=== PATIENT | female | born 1950 | race Caucasian/White ===

== ENCOUNTER 2020-11-22 18:22 | Inpatient (IN) | payer MEDICARE ==
[~2020-11-22] VITALS: Ht 165.1 cm; Wt 95.5 kg
[~2020-11-22 18:22] MED LIST: AREDS PO; CALC-1125 PO; COMB5OS OD; FURO40TA5 PO; MAGN500C15 PO; MV-M1TAB20 PO; SPIR100T PO
[2020-11-22] MEDS ORDERED: ONDANSETRON 4MG INJ ONE ×2 (20:10→23:36)
[2020-11-22] MEDS ORDERED: FUROSEMIDE 40MG VIAL ONE (20:10)
[2020-11-22 20:21] LABS: INR 2.05 (0.85-1.15); PROTHROMBIN TIME 20.9 SEC (9.6-11.6)
[2020-11-22 20:22] LABS: PARTIAL THROMBOPLASTIN TIME 38.4 SEC (26.3-35.5)
[2020-11-22 20:58] LABS: APPEARANCE,URINE Cloudy (CLEAR); BILIRUBIN,URINE Large (NEGATIVE); COLOR,URINE Dark Yellow (YELLOW); GLUCOSE, URINE (UA) Negative (NEGATIVE); KETONES,URINE Negative (NEGATIVE); LEUKOCYTE ESTERASE ,URINE Small (NEGATIVE); NITRATE,URINE Positive (NEGATIVE); OCCULT BLOOD,URINE Negative (NEGATIVE); PROTEIN,URINE Negative (NEGATIVE)
[2020-11-22 21:04] LABS: BASOPHILS % (AUTO) 0.8 % (0.0-5.0); EOSINOPHILS % (AUTO) 0.1 % (0.0-8.0); HEMATOCRIT 47.2 % (36-48); LYMPHOCYTES % (AUTO) 3.8 % (21.0-51.0); MEAN CORPUSCULAR HEMOGLOBIN 30.9 pg (27.0-33.0); MEAN CORPUSCULAR HGB CONC 36.9 g/dL (32.0-36.0); MEAN CORPUSCULAR VOLUME 83.7 fL (79-99); MONOCYTES % (AUTO) 4.9 % (3.0-13.0); NUCLEATED RED BLOOD CELLS 0.4 % (0.0-0.19); PLATELET COUNT (AUTO) 108 K/uL (130-400); RED BLOOD CELL COUNT(AUTO) 5.64 MIL/uL (4.00-5.50); RED CELL DISTRIBUTION WIDTH 21.3 % (11.0-15.5)
[2020-11-22 21:15] LABS: RBC,URINE None Seen /HPF (0-1)
[2020-11-22 21:16] LABS: BACTERIA,URINE Many /HPF (None Seen)
[2020-11-22 21:31] LABS: B-TYPE NATRIURETIC PEPTIDE 166 pg/mL (0-100)
[2020-11-22 21:51] LABS: ALBUMIN 1.9 g/dL (3.5-5.0); CREATININE 1.7 mg/dL (0.5-1.5); MAGNESIUM 4.1 mg/dL (1.80-2.40); POTASSIUM 5.5 mmol/L (3.5-5.1); TOTAL PROTEIN, SERUM 6.1 g/dL (6.0-8.3)
[2020-11-22 21:52] LABS: BILIRUBIN,TOTAL 25.9 mg/dL (0.2-1.0)
[2020-11-22] MEDS ORDERED: CEFTRIAXONE 1G VIAL ONE (22:23)
[2020-11-22] MEDS ORDERED: MORPHINE 2 MG SYG IV PRN (23:00)
[2020-11-22] MEDS: CEFTRIAXONE 1G VIAL IV SCH (23:00)
[2020-11-22] MEDS ORDERED: ACETAMINOPHEN 325 MG TAB PO PRN ×2 (23:00)
[2020-11-23] VITALS (7 sets, daily range): BP systolic 90–108; BP diastolic 34–48
[2020-11-23 03:47] LABS: BASOPHILS % (AUTO) 0.4 % (0.0-5.0); EOSINOPHILS % (AUTO) 0.2 % (0.0-8.0); HEMATOCRIT 43.9 % (36-48); LYMPHOCYTES % (AUTO) 5.3 % (21.0-51.0); MEAN CORPUSCULAR HEMOGLOBIN 30.7 pg (27.0-33.0); MEAN CORPUSCULAR HGB CONC 36.9 g/dL (32.0-36.0); MEAN CORPUSCULAR VOLUME 83.3 fL (79-99); MONOCYTES % (AUTO) 5.8 % (3.0-13.0); NEUTROPHILS % (AUTO) 84.1 % (40.0-77.0); NUCLEATED RED BLOOD CELLS 0.5 % (0.0-0.19); PLATELET COUNT (AUTO) 85 K/uL (130-400); RED BLOOD CELL COUNT(AUTO) 5.27 MIL/uL (4.00-5.50); WHITE BLOOD COUNT (AUTO) 12.4 K/uL (4.8-10.8)
[2020-11-23 04:10] LABS: ALBUMIN 1.6 g/dL (3.5-5.0); CREATININE 1.7 mg/dL (0.5-1.5); POTASSIUM 5.4 mmol/L (3.5-5.1); TOTAL PROTEIN, SERUM 5.3 g/dL (6.0-8.3)
[2020-11-23] MEDS ORDERED: GLUCAGON 1MG KIT 1 MG ML IM PRN (04:45)
[2020-11-23] MEDS ORDERED: DEXTROSE 50%-WATER 50 ML DISP.SYRIN IV PRN (04:45)
[2020-11-23] MEDS ORDERED: KAYEXALATE 15GM/60ML PO SCH ×3 (05:00→19:15)
[2020-11-23] MEDS ORDERED: MAGNESIUM 2GM PREMIX 50ML 50 ML IV PRN (05:45)
[2020-11-23] MEDS: THIAMINE HCL 100 MG TABLET PO SCH (07:24)
[2020-11-23] MEDS ORDERED: CALCIUM GLUC 1GM/10ML VIAL IV SCH (08:15)
[2020-11-23] MEDS: MULTIVITAMIN TABLET PO SCH (08:16)
[2020-11-23] MEDS: FAMOTIDINE 20MG VIAL IV SCH ×2 (08:16→21:08)
[2020-11-23] MEDS: FOLIC ACID 1 MG TABLET PO SCH (08:16)
[2020-11-23] MEDS: ONDANSETRON 4MG INJ IV PRN (08:16)
[2020-11-23] MEDS ORDERED: CALCIUM GLUC 1GM 1 GM in 0.9%NACL 100ML 100 ML IV SCH (08:30)
[2020-11-23] MEDS: ALBUMIN (HUMAN) 25% 50 ML IV SCH ×2 (10:30→17:48)
[2020-11-23] MEDS ORDERED: ALBUMIN (HUMAN) 25% 100 ML IV ONE (11:38)
[2020-11-23] MEDS: MIDODRINE HCL 5 MG TABLET PO SCH ×3 (11:49→21:08)
[2020-11-23 18:15] LABS: CREATININE 1.8 mg/dL (0.5-1.5)
[2020-11-23] MEDS ORDERED: CALCIUM GLUC 1GM/10ML VIAL IV STA (18:39)
[2020-11-23] MEDS ORDERED: DEXTROSE 50%-WATER 50 ML DISP.SYRIN IV SCH (18:45)
[2020-11-23] MEDS ORDERED: CALCIUM GLUC 1GM 2 GM in 0.9%NACL 100ML 100 ML IV SCH (19:00)
[2020-11-23] MEDS ORDERED: 0.9% NACL 500ML IV.SOLN 500 ML IV ONE (19:37)
[2020-11-23 22:39] LABS: ALBUMIN 2.3 g/dL (3.5-5.0); CREATININE 2.1 mg/dL (0.5-1.5); POTASSIUM 4.7 mmol/L (3.5-5.1); TOTAL PROTEIN, SERUM 4.7 g/dL (6.0-8.3)
[2020-11-23] MEDS: CEFTRIAXONE 1G VIAL IV SCH (23:10)
[2020-11-24] MEDS: ALBUMIN (HUMAN) 25% 50 ML IV SCH ×3 (02:30→18:24)
[2020-11-24 04:42] VITALS: BP 97/43
[2020-11-24 05:23] LABS: BASOPHILS % (AUTO) 0.4 % (0.0-5.0); EOSINOPHILS % (AUTO) 1.4 % (0.0-8.0); HEMATOCRIT 39.8 % (36-48); LYMPHOCYTES % (AUTO) 4.3 % (21.0-51.0); MEAN CORPUSCULAR HEMOGLOBIN 30.4 pg (27.0-33.0); MEAN CORPUSCULAR HGB CONC 35.9 g/dL (32.0-36.0); MEAN CORPUSCULAR VOLUME 84.7 fL (79-99); MONOCYTES % (AUTO) 7.4 % (3.0-13.0); NEUTROPHILS % (AUTO) 80.5 % (40.0-77.0); NUCLEATED RED BLOOD CELLS 0.2 % (0.0-0.19); PLATELET COUNT (AUTO) 53 K/uL (130-400); RED CELL DISTRIBUTION WIDTH 20.5 % (11.0-15.5); WHITE BLOOD COUNT (AUTO) 11.3 K/uL (4.8-10.8)
[2020-11-24 05:26] LABS: ALBUMIN 2.2 g/dL (3.5-5.0); CREATININE 1.9 mg/dL (0.5-1.5); POTASSIUM 4.5 mmol/L (3.5-5.1); TOTAL PROTEIN, SERUM 4.7 g/dL (6.0-8.3)
[2020-11-24] MEDS: THIAMINE HCL 100 MG TABLET PO SCH (05:26)
[2020-11-24 05:27] LABS: BILIRUBIN,TOTAL 28.1 mg/dL (0.2-1.0)
[2020-11-24 08:00] VITALS: BP 97/51
[2020-11-24] MEDS: MIDODRINE HCL 5 MG TABLET PO SCH ×3 (09:11→20:46)
[2020-11-24] MEDS: MULTIVITAMIN TABLET PO SCH (09:11)
[2020-11-24] MEDS: LACTULOSE 20 GM/30 ML UDCUP PO SCH ×2 (09:11→20:46)
[2020-11-24] MEDS: FAMOTIDINE 20MG VIAL IV SCH ×2 (09:11→20:46)
[2020-11-24] MEDS: FOLIC ACID 1 MG TABLET PO SCH (09:11)
[2020-11-24] MEDS: ONDANSETRON 4MG INJ IV PRN (09:11)
[2020-11-24 12:00] VITALS: BP 103/60
[2020-11-24] MEDS: OCTREOTIDE ACETATE 100 MCG/ML AMP SQ SCH ×2 (15:40→20:47)
[2020-11-24 16:00] VITALS: BP 108/48
[2020-11-24 19:54] VITALS: BP 125/65
[2020-11-24] MEDS: CEFTRIAXONE 1G VIAL IV SCH (23:02)
[2020-11-24 23:45] VITALS: BP 124/53
[2020-11-25] VITALS (10 sets, daily range): BP systolic 97–117; BP diastolic 42–70
[2020-11-25] MEDS: ALBUMIN (HUMAN) 25% 50 ML IV SCH ×3 (02:30→18:07)
[2020-11-25] MEDS: THIAMINE HCL 100 MG TABLET PO SCH (05:18)
[2020-11-25 05:23] LABS: HEMATOCRIT 39.9 % (36-48); MEAN CORPUSCULAR HGB CONC 37.1 g/dL (32.0-36.0); MEAN CORPUSCULAR VOLUME 83.6 fL (79-99); NUCLEATED RED BLOOD CELLS 0.2 % (0.0-0.19); PLATELET COUNT (AUTO) 37 K/uL (130-400); RED BLOOD CELL COUNT(AUTO) 4.77 MIL/uL (4.00-5.50); RED CELL DISTRIBUTION WIDTH 20.6 % (11.0-15.5); WHITE BLOOD COUNT (AUTO) 15.9 K/uL (4.8-10.8)
[2020-11-25 06:00] LABS: BAND NEUTROPHILS % (MANUAL) 2 % (0-2); LYMPHOCYTES % (MANUAL) 4 % (22-44); MAN.DIFF COMMENT-IMPRESSION MANUAL DIFFERENTIAL; MONOCYTES % (MANUAL) 5 % (2-9); PLATELET MORPHOLOGY COMMENT DECREASED; SEGMENTED NEUTROPHILS % 89 % (40-70)
[2020-11-25 06:06] LABS: ALBUMIN 2.9 g/dL (3.5-5.0); CREATININE 1.8 mg/dL (0.5-1.5); POTASSIUM 3.5 mmol/L (3.5-5.1); TOTAL PROTEIN, SERUM 5.1 g/dL (6.0-8.3)
[2020-11-25 06:16] LABS: BILIRUBIN,TOTAL 32.4 mg/dL (0.2-1.0)
[2020-11-25] MEDS: LACTULOSE 20 GM/30 ML UDCUP PO SCH ×3 (09:50→21:15)
[2020-11-25] MEDS: MIDODRINE HCL 5 MG TABLET PO SCH ×3 (09:51→21:15)
[2020-11-25] MEDS: OCTREOTIDE ACETATE 100 MCG/ML AMP SQ SCH ×3 (09:51→21:15)
[2020-11-25] MEDS: MULTIVITAMIN TABLET PO SCH (09:51)
[2020-11-25] MEDS: FOLIC ACID 1 MG TABLET PO SCH (09:51)
[2020-11-25] MEDS: FAMOTIDINE 20MG VIAL IV SCH ×2 (09:51→21:15)
[2020-11-25] MEDS ORDERED: LACTULOSE 20 GM/30 ML UDCUP PR SCH ×2 (12:15)
[2020-11-25] MEDS ORDERED: LACTULOSE 20 GM/30 ML UDCUP PO SCH (21:00)
[2020-11-25] MEDS: CEFTRIAXONE 1G VIAL IV SCH (22:51)
[2020-11-26] MEDS: ALBUMIN (HUMAN) 25% 50 ML IV SCH ×3 (01:31→20:50)
[2020-11-26] MEDS: LACTULOSE 20 GM/30 ML UDCUP PO SCH ×4 (01:32→20:30)
[2020-11-26 05:06] VITALS: BP 99/48
[2020-11-26 05:13] LABS: HEMATOCRIT 37.2 % (36-48); MEAN CORPUSCULAR HEMOGLOBIN 31.4 pg (27.0-33.0); MEAN CORPUSCULAR HGB CONC 37.1 g/dL (32.0-36.0); MEAN CORPUSCULAR VOLUME 84.7 fL (79-99); NUCLEATED RED BLOOD CELLS 0.2 % (0.0-0.19); PLATELET COUNT (AUTO) 27 K/uL (130-400); RED BLOOD CELL COUNT(AUTO) 4.39 MIL/uL (4.00-5.50); RED CELL DISTRIBUTION WIDTH 20.4 % (11.0-15.5)
[2020-11-26 05:30] LABS: BAND NEUTROPHILS % (MANUAL) 5 % (0-2); LYMPHOCYTES % (MANUAL) 1 % (22-44); MAN.DIFF COMMENT-IMPRESSION MANUAL DIFFERENTIAL; MONOCYTES % (MANUAL) 2 % (2-9); SEGMENTED NEUTROPHILS % 92 % (40-70)
[2020-11-26 05:47] LABS: ALBUMIN 2.8 g/dL (3.5-5.0); CREATININE 1.8 mg/dL (0.5-1.5); MAGNESIUM 2.7 mg/dL (1.80-2.40); PHOSPHORUS 4.6 mg/dL (2.5-4.9); POTASSIUM 3.3 mmol/L (3.5-5.1); TOTAL PROTEIN, SERUM 4.5 g/dL (6.0-8.3)
[2020-11-26 06:13] LABS: BILIRUBIN,TOTAL 32.2 mg/dL (0.2-1.0)
[2020-11-26 08:00] VITALS: BP 107/44
[2020-11-26] MEDS: MIDODRINE HCL 5 MG TABLET PO SCH ×3 (09:00→21:00)
[2020-11-26] MEDS: MULTIVITAMIN TABLET PO SCH (09:00)
[2020-11-26] MEDS: FOLIC ACID 1 MG TABLET PO SCH (09:00)
[2020-11-26] MEDS: OCTREOTIDE ACETATE 100 MCG/ML AMP SQ SCH ×3 (09:06→20:50)
[2020-11-26] MEDS: FAMOTIDINE 20MG VIAL IV SCH ×2 (09:06→20:50)
[2020-11-26 11:30] VITALS: BP 115/56
[2020-11-26 16:00] VITALS: BP 102/48
[2020-11-26] MEDS ORDERED: ACETAMINOPHEN 325 MG TAB PO PRN (18:30)
[2020-11-26] MEDS ORDERED: ARTIFICAL TEARS SOL 15 ML OU PRN (18:30)
[2020-11-26] MEDS ORDERED: LORAZEPAM 1 MG TABLET PO PRN (18:30)
[2020-11-26] MEDS ORDERED: MORPHINE 20MG/ML SOLN 0.25ML PO PRN ×2 (18:30)
[2020-11-26] MEDS ORDERED: LORAZEPAM 2 MG/ML 1 ML VIAL IVP PRN (18:30)
[2020-11-26] MEDS ORDERED: ACETAMINOPHEN 650 MG SUPPOSITORY RC PRN (18:30)
[2020-11-26 20:36] VITALS: BP 100/49
[2020-11-26] MEDS: CEFTRIAXONE 1G VIAL IV SCH (23:00)
[2020-11-26 23:37] VITALS: BP 108/49
[2020-11-27] MEDS: LACTULOSE 20 GM/30 ML UDCUP PO SCH ×3 (02:30→14:30)
[2020-11-27 03:24] VITALS: BP 102/50
[2020-11-27] MEDS: ALBUMIN (HUMAN) 25% 50 ML IV SCH ×2 (05:39→12:00)
[2020-11-27 07:54] VITALS: BP 105/57
[2020-11-27] MEDS: MIDODRINE HCL 5 MG TABLET PO SCH ×2 (09:00→14:00)
[2020-11-27] MEDS: FOLIC ACID 1 MG TABLET PO SCH (09:00)
[2020-11-27] MEDS: MULTIVITAMIN TABLET PO SCH (09:00)
[2020-11-27] MEDS: FAMOTIDINE 20MG VIAL IV SCH (09:13)
[2020-11-27] MEDS: OCTREOTIDE ACETATE 100 MCG/ML AMP SQ SCH (09:14)
[2020-11-27 11:16] VITALS: BP 106/46
[2020-11-27] MEDS ORDERED: TRYPSIN/BALSAM PERU/CASTOR OIL OINT 60GM TUBE TP SCH (14:30)
[2020-11-27] MEDS ORDERED: HYDROMORPHONE 0.5 MG SYG (0.5MG/0.5ML) IVP PRN (14:45)
[2020-11-27 16:38] VITALS: BP 104/56
== END 2020-11-27 18:10 | DRG 871 ==
LOC: EDH 18:22 → EDHIP 22:53 → 4AH 11-23 00:40
PROVIDERS: ADMIT Internal Medicine; ATTEND Internal Medicine
DX: A41.50 Gram-negative sepsis, unspecified (principal); G93.41 Metabolic encephalopathy; K76.7 Hepatorenal syndrome; E87.1 Hypo-osmolality and hyponatremia; N39.0 Urinary tract infection, site not specified; N17.9 Acute kidney failure, unspecified; E46 Unspecified protein-calorie malnutrition; E87.70 Fluid overload, unspecified; E16.2 Hypoglycemia, unspecified; K72.90 Hepatic failure, unspecified without coma; D69.6 Thrombocytopenia, unspecified; E66.9 Obesity, unspecified; E83.42 Hypomagnesemia; E86.0 Dehydration; R73.9 Hyperglycemia, unspecified; K70.31 Alcoholic cirrhosis of liver with ascites; Z80.7 Family history of other malignant neoplasms of lymphoid, hematopoietic and related tissues; Z82.0 Family history of epilepsy and other diseases of the nervous system; Z82.5 Family history of asthma and other chronic lower respiratory diseases; Z82.49 Family history of ischemic heart disease and other diseases of the circulatory system; Z83.3 Family history of diabetes mellitus; Z82.3 Family history of stroke; E87.5 Hyperkalemia; N18.9 Chronic kidney disease, unspecified; Z66 Do not resuscitate; R53.81 Other malaise; Z74.01 Bed confinement status; Z51.5 Encounter for palliative care; Z80.3 Family history of malignant neoplasm of breast; Z80.8 Family history of malignant neoplasm of other organs or systems; K70.11 Alcoholic hepatitis with ascites; Z90.49 Acquired absence of other specified parts of digestive tract; Z60.2 Problems related to living alone; Z68.35 Body mass index [BMI] 35.0-35.9, adult
CPT/HCPCS: 36415; 70450; 71045; 74176; 76705; 80048; 80053; 81001; 82140; 82550; 83605; 83690; 83735; 83880; 84100; 84145; 84443; 84484; 85025; 85610; 85730; 87040; 87077; 87088; 87186; 93005; 93306; 93356; 97039; G0378; J0610; J0696; J1940; J2354; J2405; J3490; J7040; J7070; P9046; P9047